=== PATIENT | female | born 1950 | race Caucasian/White ===

== ENCOUNTER 2020-04-21 16:34 | Observation (INO) ==
[2020-04-21 17:17] LABS: Basophils # 0.1 K/mcL (0.0-0.2); Basophils % 0.8 %; Eosinophils # 0.1 K/mcL (0.0-0.6); Eosinophils % 1.1 %; Hematocrit 39.8 % (35.3-44.9); Hemoglobin 12.6 g/dL (11.5-15.4); Immature Granulocytes % 0.3 % (0-4); Lymphocytes % 13.2 %; Mean Corpuscular HGB Conc 31.7 g/dL (31.6-35.5); Mean Corpuscular Hemoglobin 24.7 pg (28.0-33.3); Mean Platelet Volume 11.4 fL (9.4-12.4); Monocytes # 0.6 K/mcL (0.0-1.3); Monocytes % 8.2 %; Neutrophils # 5.6 K/mcL (1.6-8.9); Platelet Count 272 K/mcL (140-400); Red Cell Distribution Width 17.7 % (11.5-14.5); Segmented Neutrophils % 76.4 %; White Blood Count 7.4 K/mcL (4.3-11.1)
[2020-04-21 17:26] LABS: Bilirubin,Urine Small (Negative); Blood,Urine Negative (Negative); Clarity,Urine Slightly Cloudy (Clear); Color,Urine Amber (Yellow); Glucose,Urine (UA) Normal (Normal); Ketones,Urine Negative (Negative); Leukocyte Esterase,Urine Negative (Negative); Nitrite,Urine Negative (Negative); PH,Urine 5.5 pH Units (5.0-8.0); Protein,Urine Negative (Neg-Trace); Specific Gravity,Urine >= 1.030 (1.010-1.025); Urobilinogen,Urine Normal (Normal)
[2020-04-21 17:28] LABS: INR 1.3; Prothrombin Time 14.7 Seconds (9.4-12.1)
[2020-04-21 17:29] LABS: Bacteria,Urine Many per hpf (None-Few); Squamous Epithelial Cell,Urine Moderate per hpf (None-Few)
[2020-04-21 17:31] LABS: Alanine Aminotransferase 7 Units/L (7-52); Albumin 3.8 g/dL (3.5-5.7); Albumin/Globulin Ratio 1.3 (1.1-2.2); Alkaline Phosphatase 77 Units/L (34-104); Aspartate Amino Transferase 12 Units/L (13-39); BUN/Creatinine Ratio 29 (6-26); Bilirubin,Total 0.7 mg/dL (0.3-1.0); Blood Urea Nitrogen 29 mg/dL (8-23); Calcium 8.6 mg/dL (8.6-10.3); Carbon Dioxide 25 mEq/L (23-29); Chloride 107 mEq/L (98-107); Globulin 2.9 g/dL (2.4-3.5); Glucose 109 mg/dL (70-105); Magnesium 1.8 mg/dL (1.6-2.6); Osmolality,Calculated 298 (280-300); Phosphorous 2.9 mg/dL (2.7-4.5); Potassium 3.1 mEq/L (3.5-5.1); Sodium 141 mEq/L (136-145); Total Protein 6.7 g/dL (6.4-8.9); eGFR For African Americans > 60 (> 60); eGFR For Non-African Americans 55 (> 60)
[2020-04-21 17:35] LABS: Heparin anti-factor XA UFH 1.44 IU/mL (0.30-0.70)
[2020-04-21] MEDS ORDERED: Apixaban 2.5 MG TABLET PO SCH (21:06)
[2020-04-21] MEDS ORDERED: methocarbamoL 750 MG TABLET PO SCH (21:06)
[2020-04-21] MEDS ORDERED: Nitroglycerin 0.4 MG TAB.SUBL SL PRN (21:06)
[2020-04-21] MEDS ORDERED: Naloxone 0.4 MG/ML INJ IVP PRN (21:06)
[2020-04-21] MEDS: QUEtiapine Fumarate 100 MG TABLET PO SCH (23:00)
[2020-04-21] MEDS: ALPRAZolam 1 MG TABLET PO PRN (23:01)
[2020-04-21] MEDS: *HR* OxyCODONE/APAP 5/325 TABLET PO PRN (23:01)
[2020-04-21] MEDS: *HR* Amiodarone 200 MG TABLET PO SCH (23:21)
[2020-04-22] MEDS ORDERED: methocarbamoL 750 MG TABLET PO SCH
[2020-04-22 03:02] LABS: Basophils # 0.1 K/mcL (0.0-0.2); Eosinophils # 0.2 K/mcL (0.0-0.6); Eosinophils % 3.6 %; Hematocrit 34.5 % (35.3-44.9); Immature Granulocytes % 0.1 % (0-4); Lymphocytes # 1.5 K/mcL (0.6-4.6); Lymphocytes % 22.4 %; Mean Corpuscular HGB Conc 32.2 g/dL (31.6-35.5); Mean Corpuscular Hemoglobin 25.1 pg (28.0-33.3); Mean Corpuscular Volume 78.1 fL (83.0-100.0); Mean Platelet Volume 11.7 fL (9.4-12.4); Monocytes # 0.7 K/mcL (0.0-1.3); Monocytes % 10.6 %; Neutrophils # 4.2 K/mcL (1.6-8.9); Platelet Count 244 K/mcL (140-400); Red Blood Count 4.42 M/mcL (3.82-4.97); Red Cell Distribution Width 17.5 % (11.5-14.5); Segmented Neutrophils % 62.3 %; White Blood Count 6.7 K/mcL (4.3-11.1)
[2020-04-22 03:03] LABS: Hemoglobin 11.1 g/dL (11.5-15.4)
[2020-04-22 03:18] LABS: BUN/Creatinine Ratio 35 (6-26); Blood Urea Nitrogen 29 mg/dL (8-23); Calcium 8.4 mg/dL (8.6-10.3); Carbon Dioxide 25 mEq/L (23-29); Chloride 110 mEq/L (98-107); Cholesterol 148 mg/dL (< 200); Glucose 98 mg/dL (70-105); HDL Cholesterol 73 mg/dL (40-59); LDL Cholesterol,Calculated 57 mg/dL (< 100); Osmolality,Calculated 298 (280-300); Potassium 3.1 mEq/L (3.5-5.1); Sodium 141 mEq/L (136-145); Triglycerides 88 mg/dL (< 150); eGFR For African Americans > 60 (> 60); eGFR For Non-African Americans > 60 (> 60)
[2020-04-22] MEDS ORDERED: Metoprolol XL (24 HR) Succ 50 MG TAB.ER.24H PO SCH ×2 (09:00→21:00)
[2020-04-22] MEDS ORDERED: Venlafaxine XR (24 HR) 37.5 MG CAP.ER.24H PO SCH (09:00)
[2020-04-22] MEDS ORDERED: Fluticasone Propionate Nasal 50 MCG/SPRAY BOTTLE NS SCH (09:00)
[2020-04-22] MEDS ORDERED: FLUoxetine 20 MG CAPSULE PO SCH (09:00)
[2020-04-22] MEDS: Furosemide 40 MG TABLET PO SCH (09:26)
[2020-04-22] MEDS: Pregabalin 75 MG CAPSULE PO SCH ×2 (09:26→23:39)
[2020-04-22] MEDS: Apixaban 2.5 MG TABLET PO SCH ×2 (09:26→21:45)
[2020-04-22] MEDS: QUEtiapine Fumarate 100 MG TABLET PO SCH ×2 (09:26→21:45)
[2020-04-22] MEDS: *HR* OxyCODONE/APAP 5/325 TABLET PO PRN ×2 (09:27→21:50)
[2020-04-22] MEDS: Baclofen 10 MG TABLET PO SCH ×2 (09:27→23:39)
[2020-04-22] MEDS: Spironolactone 25 MG TABLET PO SCH (09:27)
[2020-04-22] MEDS: Fluticasone Propionate Nasal 50 MCG/SPRAY BOTTLE NS SCH (09:32)
[2020-04-22] MEDS: (Tiotropium Br/Olodaterol Hcl [Stiolto Respimat Inhaler]) IH SCH (09:37)
[2020-04-22] MEDS ORDERED: Perflutren Lipid Microsphere 1.3 ML in 0.9 % Sodium Chloride 8.7 ML IVP PRN (11:21)
[2020-04-22] MEDS: ALPRAZolam 1 MG TABLET PO PRN (18:20)
[2020-04-22] MEDS ORDERED: Metoprolol XL (24 HR) Succ 25 MG TAB.ER.24H PO SCH (21:00)
[2020-04-22] MEDS: *HR* Amiodarone 200 MG TABLET PO SCH (21:44)
[2020-04-23] MEDS: Spironolactone 25 MG TABLET PO SCH (08:29)
[2020-04-23] MEDS: Pregabalin 75 MG CAPSULE PO SCH (08:29)
[2020-04-23] MEDS: Furosemide 40 MG TABLET PO SCH (08:30)
[2020-04-23] MEDS: Apixaban 2.5 MG TABLET PO SCH (08:30)
[2020-04-23] MEDS: Baclofen 10 MG TABLET PO SCH (08:30)
[2020-04-23] MEDS: QUEtiapine Fumarate 100 MG TABLET PO SCH (08:30)
[2020-04-23] MEDS: *HR* OxyCODONE/APAP 5/325 TABLET PO PRN (08:31)
[2020-04-23] MEDS: (Tiotropium Br/Olodaterol Hcl [Stiolto Respimat Inhaler]) IH SCH (08:32)
[2020-04-23] MEDS: Fluticasone Propionate Nasal 50 MCG/SPRAY BOTTLE NS SCH (08:33)
[2020-04-23 08:54] LABS: Bilirubin,Urine Negative (Negative); Blood,Urine Negative (Negative); Clarity,Urine Clear (Clear); Color,Urine Yellow (Yellow); Glucose,Urine (UA) Normal (Normal); Ketones,Urine Negative (Negative); Leukocyte Esterase,Urine Negative (Negative); Nitrite,Urine Negative (Negative); Protein,Urine Negative (Neg-Trace); Urobilinogen,Urine Normal (Normal)
[2020-04-23 09:40] LABS: Basophils # 0.1 K/mcL (0.0-0.2); Basophils % 1.6 %; Eosinophils # 0.3 K/mcL (0.0-0.6); Eosinophils % 5.7 %; Hematocrit 32.7 % (35.3-44.9); Hemoglobin 10.3 g/dL (11.5-15.4); Immature Granulocytes % 0.2 % (0-4); Lymphocytes # 1.3 K/mcL (0.6-4.6); Lymphocytes % 26.4 %; Mean Corpuscular HGB Conc 31.5 g/dL (31.6-35.5); Mean Corpuscular Hemoglobin 25.2 pg (28.0-33.3); Mean Platelet Volume 11.1 fL (9.4-12.4); Monocytes # 0.5 K/mcL (0.0-1.3); Neutrophils # 2.7 K/mcL (1.6-8.9); Platelet Count 200 K/mcL (140-400); Red Blood Count 4.09 M/mcL (3.82-4.97); Red Cell Distribution Width 17.9 % (11.5-14.5); Segmented Neutrophils % 56.1 %; White Blood Count 4.9 K/mcL (4.3-11.1)
[2020-04-23] MEDS: ALPRAZolam 1 MG TABLET PO PRN (09:42)
[2020-04-23 10:01] LABS: BUN/Creatinine Ratio 18 (6-26); Blood Urea Nitrogen 14 mg/dL (8-23); Calcium 8.2 mg/dL (8.6-10.3); Carbon Dioxide 28 mEq/L (23-29); Chloride 102 mEq/L (98-107); Glucose 131 mg/dL (70-105); Magnesium 1.6 mg/dL (1.6-2.6); Osmolality,Calculated 282 (280-300); Potassium 3.5 mEq/L (3.5-5.1); Sodium 135 mEq/L (136-145); eGFR For African Americans > 60 (> 60); eGFR For Non-African Americans > 60 (> 60)
[2020-04-23 12:13] VITALS: BP 99/49
[2020-04-23] MEDS ORDERED: ALPRAZolam 0.5 MG TABLET PO PRN (13:54)
[2020-04-23] MEDS ORDERED: *HR* OxyCODONE/APAP 5/325 TABLET PO ONE (15:57)
[2020-04-23] MEDS ORDERED: QUEtiapine Fumarate 100 MG TABLET PO SCH (21:00)
[2020-04-24] MEDS ORDERED: Budesonide/Formoterol 160/4.5 1 PUFF INH IH SCH (09:00)
[2020-04-24] MEDS ORDERED: Tiotropium 10 INH DOSE IH SCH (09:00)
== END 2020-04-23 16:58 ==
LOC: EMEROOGRE 16:34 → INPGRE 16:34
PROVIDERS: ADMIT Family Medicine; ATTEND Family Medicine